=== PATIENT | female | born 1980 | race African-American/Black ===

== ENCOUNTER → 2017-03-25 | Emergency (ER) | payer OTHER ==
[~2017-03-25] VITALS: Ht 160 cm; Wt 77.1 kg
[~2017-03-25] MED LIST: ALEVE220 M2 PO; CIPRO500 MG PO; CYCLOBENZAPRINE10 MG ORAL; HYDROCODON-ACE1 EA15 ORAL; IBUPROFEN200 MG ORAL; IBUPROFEN400 M1 PO; IBUPROFEN600 MG ORAL; IBUPROFEN600 MG PO; IBUPROFEN800 MG PO; NKM; NORCO 5-325 TA1 EAC1 ORAL; NORCO 5-325 TA1 EACH ORAL; PHENAZOPYRIDIN200 MG PO; ROBAXIN-750750 MG PO; ROBAXIN500 MG PO; TRAMADOL HCL50 MG ORAL; VALIUM10 MG ORAL; VALIUM2 MG ORAL; VALIUM5 MG ORAL; VICODIN 5-5001 EACH PO
[2017-03-25 19:24] VITALS: BP 122/86
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
[2017-03-25 19:49] VITALS: BP 122/86
== END | disposition home or self-care (01) ==
LOC: EMR 19:49
DX: M54.5 Low back pain (principal); V43.62XA Car passenger injured in collision with other type car in traffic accident, initial encounter; Y92.414 Local residential or business street as the place of occurrence of the external cause
CPT/HCPCS: 99284

== ENCOUNTER 2018-01-05 19:08 | Emergency (ER) | payer MEDICAID, OTHER ==
[~2018-01-05] VITALS: Ht 160 cm; Wt 80.7 kg
[2018-01-05 19:31] VITALS: BP 113/74
[2018-01-05 19:56] LABS: APPEARANCE,URINE CLEAR; BILIRUBIN, URINE NEGATIVE (NEGATIVE); GLUCOSE, URINE (UA) NEGATIVE (NEGATIVE); KETONES,URINE NEGATIVE (NEGATIVE); LEUKOCYTE ESTERASE ,URINE 1+ (NEGATIVE); NITRITE,URINE NEGATIVE (NEGATIVE); PH,URINE 7 (4.5-8.0); PROTEIN,URINE NEGATIVE (NEGATIVE); UROBILINOGEN,URINE 1 MG/DL (0.0-1.0)
[2018-01-05 20:02] LABS: COLOR,URINE YELLOW
--- NOTE | 2018-01-05 20:04 | Emergency Room Report ---
History of Present Illness General Chief Complaint: Lower Back Pain or Injury Source: Patient Present Illness HPI 37-year-old female presents to the emergency department complaining of 7 out of 10 in severity intermittent low back muscular spasms 3 weeks. Patient also reports new onset of urinary frequency with urgency 3 days. Patient denies dysuria, hematuria, nausea, vomiting, fevers, chills. Denies abdominal pain or tenderness. She reports history of low back pain in the past that would happen every once in a while and sometimes with associated with sciatica symptoms. Patient states today her pain is primarily located across the low back and does not radiate down either of her legs. She denies trauma or fall or recent strenuous activities. She denies , recent spinal procedure or hx of cancer. Denies CP, Palpitations, LOC, AMS, dizziness, Changes in Vision, Sensation, paresthesias, or a sudden severe headache. Hx of kidney stones but states this does not feel like previous episodes. Allergies: Coded Allergies: LANOLIN (Verified Allergy, Intermediate, Hives, 10/26/12) Patient History Past Medical History: see triage record Past Surgical History: none Pertinent Family History: none Last Menstrual Period: 2 weeks ago Now: No Reviewed Nursing Documentation: PMH: Agreed; PSxH: Agreed Nursing Documentation-PMH Hx Hypertension: No - orthopedic surgery to left knee when 5yrs old Hx Pacemaker: No Hx Asthma: No Hx COPD: No Hx Diabetes: No Hx Cancer: No Hx Gastrointestinal Problems: No Hx Dialysis: No - Left Kidney Stone Removal Hx Neurological Problems: No Hx Cerebrovascular Accident: No Hx Seizures: No Review of Systems All Other Systems: negative except mentioned in HPI Physical Exam Vital Signs Date Time Temp Pulse Resp B/P (MAP) Pulse Ox O2 Delivery O2 Flow Rate FiO2 01/05/18 19:15 98.9 76 18 113/74 98 Room Air 99.0 Sp02 EP Interpretation: reviewed, normal General Appearance: no apparent distress, alert, GCS 15, non-toxic Head: normocephalic, atraumatic ENT: hearing grossly normal, normal voice Neck: full range of motion Respiratory: lungs clear, normal breath sounds, speaking full sentences Cardiovascular #1: regular rate, rhythm Gastrointestinal: normal bowel sounds, non tender, soft, non-distended, no guarding Rectal: deferred Genitourinary: normal inspection, no CVA tenderness Musculoskeletal: back normal, gait/station normal, normal range of motion, tender - TTP to the paraspinal muscles of the lumbar spine, no midline ttp, no obvious deformity. Neurologic: alert, oriented x3, responsive, motor strength/tone normal, sensory intact, speech normal, grossly normal Psychiatric: judgement/insight normal Skin: normal color, no rash, warm/dry, well hydrated Lymphatic: no adenopathy Medical Decision Making PA Attestation Dr. Dallas is my supervising Physician whom patient management has been discussed with. Diagnostic Impression: Primary Impression: Low back pain Qualified Codes: M54.5 - Low back pain Additional Impression: Spasm of back muscles ER Course 37-year-old female presents to the emergency department complaining of 7 out of 10 in severity intermittent low back muscular spasms 3 weeks. Patient also reports new onset of urinary frequency with urgency 3 days. Patient denies dysuria, hematuria, nausea, vomiting, fevers, chills. Denies abdominal pain or tenderness. She reports history of low back pain in the past that would happen every once in a while and sometimes with associated with sciatica symptoms. Patient states today her pain is primarily located across the low back and does not radiate down either of her legs. She denies trauma or fall or recent strenuous activities. She denies , recent spinal procedure or hx of cancer. Denies CP, Palpitations, LOC, AMS, dizziness, Changes in Vision, Sensation, paresthesias, or a sudden severe headache. Hx of kidney stones but states this does not feel like previous episodes. Ddx considered but are not limited to Fracture, dislocation, contusion, epidural abscess, Sprain/Strain/Spasm. pyelonephritis, UTI. Vital signs: are WNL, pt. is afebrile H&PE are most consistent with muscle spasm. ORDERS: -UA: unremarkable ED INTERVENTIONS: -Pt. declined medication here in ED/ Driving home DISCHARGE: At this time pt. is stable for d/c to home. Will provide printed patient care instructions, and any necessary prescriptions. Care plan and follow up instructions have been discussed with the patient prior to discharge. Labs Test 01/05/18 19:21 Urine Color Yellow Urine Appearance Clear Urine pH 7 (4.5-8.0) Urine Specific [place] 1.015 (1.005-1.035) Urine Protein Negative (NEGATIVE) Urine Glucose (UA) Negative (NEGATIVE) Urine Ketones Negative (NEGATIVE) Urine Occult Blood Negative (NEGATIVE) Urine Nitrite Negative (NEGATIVE) Urine Bilirubin Negative (NEGATIVE) Urine Urobilinogen 1 MG/DL (0.0-1.0) Urine Leukocyte Esterase 1+ (NEGATIVE) Urine RBC 0-2 /HPF (0 - 2) Urine WBC 0-2 /HPF (0 - 2) Urine Squamous Epithelial Cells Few /LPF (NONE/OCC) Urine Bacteria Few /HPF (NONE) Last Vital Signs Date Time Temp Pulse Resp B/P (MAP) Pulse Ox O2 Delivery O2 Flow Rate FiO2 01/05/18 19:31 99.0 18 113/74 98 Room Air 99.0 01/05/18 19:15 76 Disposition: HOME, SELF-CARE Condition: Stable Scripts Lidocaine (Lidoderm) 1 Each Adh..patch 1 PATCH TOPIC DAILY, #30 PATCH 0 Refills Patch(es) may remain in place for up to 12 hours in any 24-hour period. Prov: Carole Knapp P.A. 01/05/18 Methocarbamol* (ROBAXIN*) 500 Mg Tablet 1000 MG PO TID for 7 Days, #42 TAB 0 Refills Take 1 "Soma/carisoprodol" tonight at bedtime. Then start taking "Robaxin/methocarbamol" for maintenance starting tomorrow, do not take both medications at the same time. Prov: Carole Knapp P.A. 01/05/18 Carisoprodol* (SOMA*) 350 Mg Tablet 350 MG PO QHS, #1 TAB Take 1 "Soma/carisoprodol" tonight at bedtime. Then start taking "Robaxin/methocarbamol" for maintenance starting tomorrow, do not take both medications at the same time. Prov: Carole Knapp P.A. 01/05/18 Patient Instructions: Back Pain, Adult, Lumbosacral Strain Additional Instructions: Take 1 "Soma/carisoprodol" tonight at bedtime. Then start taking "Robaxin /methocarbamol" for maintenance starting tomorrow, do not take both medications at the same time. Follow up with a Primary Care Provider in 3-5 days, even if your symptoms have resolved. --Please review list of primary care clinics, if you do not already have a primary care provider Return sooner to ED if new symptoms occur, or current symptoms become worse. Do not drink alcohol, drive, or operate heavy machinery while taking Soma OR Robaxin as this may cause drowsiness. - Please note that this Emergency Department Report was dictated using [employer] of application development technology software, occasionally this can lead to erroneous entry secondary to interpretation by the dictation equipment. Carole Knapp January 05, 2018 20:04
[2018-01-05] MEDS ORDERED: LIDODERM700 M1 TOPIC (21:02)
[2018-01-05] MEDS ORDERED: SOMA350 MG PO (21:02)
[2018-01-05] MEDS ORDERED: ROBAXIN500 MG PO (21:02)
[2018-01-05 21:21] VITALS: BP 117/70
== END 2018-01-05 21:22 | disposition home or self-care (01) ==
LOC: EMR 21:02
DX: M54.5 Low back pain (principal); M62.830 Muscle spasm of back
CPT/HCPCS: 81003; 99284

== ENCOUNTER 2018-12-01 18:15 | Emergency (ER) | payer MEDICAID ==
[~2018-12-01] VITALS: Ht 157.5 cm; Wt 83.9 kg
[~2018-12-01 18:15] MED LIST changes: +LIDODERM700 M1 TOPIC; +SOMA350 MG PO
[2018-12-01] MEDS ORDERED: NKM (18:27)
[2018-12-01] MEDS ORDERED: IBUPROFEN600 MG ORAL (18:51)
[2018-12-01] MEDS ORDERED: ZYRTEC10 MG ORAL (18:51)
--- NOTE | 2018-12-01 18:53 | NUR ---
ED Nurse Note: Pt has been coughing and sneezing x 1 month. AOx4, VSS. Will cont to monitor.
[2018-12-01 18:55] VITALS: BP 109/75
[2018-12-01 19:00] VITALS: BP 109/75
--- NOTE | 2018-12-01 19:00 | NUR ---
ER DISCHARGE NOTE: Patient is cleared to be discharged per ERMD, pt is aox4, on room air, with stable vital signs. pt was given dc and prescription instructions, pt was able to verbalize understanding, pt id band removed. pt is able to ambulate with steady gait. pt took all belongings.
--- NOTE | 2018-12-01 19:04 | Emergency Room Report ---
History of Present Illness General Chief Complaint: Upper Respiratory Illness Source: Patient Present Illness HPI Patient presents with complaints of recent increased itching of her throat Some runny nose coughing and sneezing as well Denies any chest pain denies any shortness of breath denies any posterior neck pain Patient reports that she has decreased her smoking however still having some of these increased discomfort denies any recent travel There was a question regarding possible recent mold discovery where they live Patient also reports that she had a fall 2 weeks ago while skating with her daughter With pain to the left shoulder Denies any neuropathy denies any focal weakness Allergies: Coded Allergies: LANOLIN (Verified Allergy, Intermediate, Hives, 12/01/18) Patient History Past Medical History: see triage record Pertinent Family History: none Last Menstrual Period: 11/15/18 Now: No Reviewed Nursing Documentation: PMH: Agreed; PSxH: Agreed Nursing Documentation-PMH Past Medical History: No Stated History Hx Hypertension: No - orthopedic surgery to left knee when 5yrs old Hx Pacemaker: No Hx Asthma: No Hx COPD: No Hx Diabetes: No Hx Cancer: No Hx Gastrointestinal Problems: No Hx Dialysis: No - Left Kidney Stone Removal Hx Neurological Problems: No Hx Cerebrovascular Accident: No Hx Seizures: No Review of Systems All Other Systems: negative except mentioned in HPI Physical Exam Vital Signs Date Time Temp Pulse Resp B/P (MAP) Pulse Ox O2 Delivery O2 Flow Rate FiO2 12/01/18 18:24 98.4 88 16 116/79 97 Room Air Sp02 EP Interpretation: reviewed, normal General Appearance: well appearing, no apparent distress Head: normocephalic, atraumatic Eyes: bilateral eye PERRL, bilateral eye EOMI ENT: hearing grossly normal, normal pharynx, TMs + canals normal, uvula midline Neck: full range of motion, supple, no meningismus, no bony tend Respiratory: lungs clear, normal breath sounds, no rhonchi, no respiratory distress, no retraction, no accessory muscle use Cardiovascular #1: normal peripheral pulses, regular rate, rhythm, no edema, no gallop, no JVD, no murmur Gastrointestinal: normal bowel sounds, non tender, soft, no mass, no organomegaly, non-distended, no guarding, no hernia, no pulsatile mass, no rebound Genitourinary: no CVA tenderness Musculoskeletal: normal inspection - Subjective he points to the left upper shoulder anteriorly however range of motion intact, Neurologic: oriented x3, responsive, operations administrative assistant III-XII nml as tested, motor strength/ tone normal, sensory intact Psychiatric: mood/affect normal Skin: normal color, no rash, warm/dry, palpation normal Lymphatic: normal inspection, no adenopathy Medical Decision Making Diagnostic Impression: Primary Impression: allergy Additional Impression: shoulder contusion ER Course Given the patient's history and exam multiple differentials considered patient otherwise Hemodynamically stable has benign medical evaluation I did not feel further emergent imaging or workup was required And patient will have initial conservative outpatient trial Last Vital Signs Date Time Temp Pulse Resp B/P (MAP) Pulse Ox O2 Delivery O2 Flow Rate FiO2 12/01/18 18:55 98.4 84 20 109/75 97 Room Air Status: unchanged Disposition: HOME, SELF-CARE Condition: Stable Scripts Ibuprofen* (MOTRIN*) 600 Mg Tablet 600 MG ORAL Q8H PRN for For Pain, #20 TAB 0 Refills Prov: Abraham De León DO 12/01/18 Cetirizine Hcl* (ZYRTEC*) 10 Mg Tablet 10 MG ORAL DAILY, #12 TAB 0 Refills Prov: Abraham De León DO 12/01/18 Patient Instructions: Contusion, [id number], Allergic Rhinitis Additional Instructions: Patient is provided with the discharge instructions notified to follow up with primary doctor in the next 2-3 days otherwise return to the er with any worsening symptoms. Please note that this report is being documented using [employer] technology. This can lead to erroneous entry secondary to incorrect interpretation by the dictating instrument. Abraham De León DO Dec 01, 2018 19:04
== END 2018-12-01 19:00 | disposition home or self-care (01) ==
LOC: EMR 18:39
DX: T78.40XA Allergy, unspecified, initial encounter (principal); X58.XXXA Exposure to other specified factors, initial encounter; Z88.8 Allergy status to other drugs, medicaments and biological substances; F17.200 Nicotine dependence, unspecified, uncomplicated; S40.012A Contusion of left shoulder, initial encounter; W19.XXXA Unspecified fall, initial encounter; Y93.51 Activity, roller skating (inline) and skateboarding; Y92.9 Unspecified place or not applicable; Z87.442 Personal history of urinary calculi
CPT/HCPCS: 99281

== ENCOUNTER 2019-06-16 19:42 | Emergency (ER) | payer SELFPAY ==
[~2019-06-16] VITALS: Ht 160 cm; Wt 79.4 kg
[~2019-06-16 19:42] MED LIST changes: +ZYRTEC10 MG ORAL
--- NOTE | 2019-06-16 20:13 | NUR ---
ED Nurse Note: Pt walked into ER c/o of abdominal pain, N/V since Friday. A/Ox4; steady gait. IV established on LAC 22G. Blood and urine collected.
[2019-06-16] MEDS ORDERED: Metoclopramide 10mg/2ml Inj IVP ONE (20:15)
[2019-06-16] MEDS ORDERED: DiphenhydrAMINE 50mg/ml Inj IVP ONE (20:15)
[2019-06-16] MEDS ORDERED: Ketorolac 30mg Inj IV ONE (20:15)
--- NOTE | 2019-06-16 20:19 | Emergency Room Report ---
History of Present Illness General Chief Complaint: Headache Source: Patient Present Illness HPI Disclaimer: Please note that this report is being documented using [employer] technology. This can lead to erroneous entry secondary to incorrect interpretation by the dictating instrument. HPI: 38-year-old female with no reported medical history presenting for evaluation of abdominal pain, vomiting and headache. Symptoms began 3 days ago and have been steadily worsening. She states she has been unable to eat or drink anything due to severe upper abdominal pain, nausea and persistent vomiting. Unable to tolerate solids or liquids. Denies chest pain or shortness of breath but has reported a productive cough. Today she noted some blood-tinged sputum and came in for evaluation. Denies diarrhea. Reports some dysuria and hesitancy. Denies flank pain. She also reports a headache that starts from the upper shoulders and over the neck and then spreads over the back of the head that is worse while retching. Has been vomiting daily and feels weak and drained. Did not receive a flu shot this year. No known sick contacts. LMP 1 week ago. Denies vaginal bleeding or vaginal discharge PMH: Denies PSH: Denies Allergies: Denies Social Hx: Social alcohol use. Regular tobacco use. Denies drug use Allergies: Coded Allergies: LANOLIN (Verified Allergy, Intermediate, Hives, 12/01/18) Patient History Last Menstrual Period: 06/07/19 Now: No Nursing Documentation-PMH Past Medical History: No History, Except For Hx Hypertension: No - orthopedic surgery to left knee when 5yrs old Hx Pacemaker: No Hx Asthma: No Hx COPD: No Hx Diabetes: No Hx Cancer: No Hx Gastrointestinal Problems: No Hx Dialysis: No - Left Kidney Stone Removal Hx Neurological Problems: No Hx Cerebrovascular Accident: No Hx Seizures: No Review of Systems All Other Systems: negative except mentioned in HPI Physical Exam Vital Signs Date Time Temp Pulse Resp B/P (MAP) Pulse Ox O2 Delivery O2 Flow Rate FiO2 06/16/19 19:50 98.8 72 22 129/70 (89) 100 Room Air General: Awake and alert, no acute distress HEENT: NC/AT. EOMI. dry mucous membranes Cardiovascular: RRR. S1 and S2 normal. No murmur appreciated Resp: Mild tachypnea. Normal work of breathing. No cough, wheezing or crackles appreciated Abdomen: Abdomen is soft, nondistended. Tender in the epigastrium in the upper quadrants bilaterally. No significant tenderness in the lower quadrants. No rebound. No masses. Skin: Intact. No abrasions, laceration or rash over the exposed skin MSK: Normal tone and bulk. Moving all extremities. No obvious deformity. Neuro: Awake and alert. Mentating appropriately. Spine: Paraspinal tenderness over the cervical spine and over the trapezius. No midline pain in the cervical, thoracic or lumbosacral spine Medical Decision Making Diagnostic Impression: Primary Impression: Urinary tract infection Additional Impressions: Abdominal pain Vomiting ER Course 38-year-old female presents for evaluation of abdominal pain, vomiting and headache. Differential includes was not limited to gastritis, gastroenteritis, pneumonia, bronchitis, UTI, influenza, other viral syndrome, bowel obstruction, pancreatitis, cholecystitis, appendicitis. We will start broad metabolic and infectious work-up. Will give IV fluids, pain medication, nausea medication. Will reevaluate the patient after receiving medication however at this time do not believe she requires emergent imaging. Will reassess frequently. Laboratory Tests Test 06/16/19 20:25 06/16/19 20:38 White Blood Count 9.1 K/UL (4.8-10.8) Red Blood Count 5.20 M/UL (4.20-5.40) Hemoglobin 16.1 G/DL (12.0-16.0) H Hematocrit 45.7 % (37.0-47.0) Mean Corpuscular Volume 88 FL (80-99) Mean Corpuscular Hemoglobin 31.0 PG (27.0-31.0) Mean Corpuscular Hemoglobin Concent 35.4 G/DL (32.0-36.0) Red Cell Distribution Width 10.0 % (11.6-14.8) L Platelet Count 255 K/UL (150-450) Mean Platelet Volume 6.1 FL (6.5-10.1) L Neutrophils (%) (Auto) 83.4 % (45.0-75.0) H Lymphocytes (%) (Auto) 11.8 % (20.0-45.0) L Monocytes (%) (Auto) 4.2 % (1.0-10.0) Eosinophils (%) (Auto) 0.0 % (0.0-3.0) Basophils (%) (Auto) 0.7 % (0.0-2.0) Sodium Level 136 MMOL/L (136-145) Potassium Level 3.3 MMOL/L (3.5-5.1) L Chloride Level 98 MMOL/L (98-107) Carbon Dioxide Level 26 MMOL/L (21-32) Anion Gap 12 mmol/L (5-15) Blood Urea Nitrogen 7 mg/dL (7-18) Creatinine 1.0 MG/DL (0.55-1.30) Estimate Glomerular Filtration Rate > 60 mL/min (>60) Glucose Level 135 MG/DL (74-106) H Calcium Level 9.0 MG/DL (8.5-10.1) Total Bilirubin 0.5 MG/DL (0.2-1.0) Aspartate Amino Transferase (AST) 17 U/L (15-37) Alanine Aminotransferase (ALT) 20 U/L (12-78) Alkaline Phosphatase 79 U/L (46-116) Total Protein 8.7 G/DL (6.4-8.2) H Albumin 3.2 G/DL (3.4-5.0) L Globulin 5.5 g/dL Albumin/Globulin Ratio 0.6 (1.0-2.7) L Lipase 77 U/L (73-393) Urine Color Yellow Urine Appearance Cloudy Urine pH 9 (4.5-8.0) Urine Specific [place] 1.015 (1.005-1.035) Urine Protein 3+ (NEGATIVE) H Urine Glucose (UA) Negative (NEGATIVE) Urine Ketones 1+ (NEGATIVE) H Urine Blood 2+ (NEGATIVE) H Urine Nitrite Negative (NEGATIVE) Urine Bilirubin Negative (NEGATIVE) Urine Urobilinogen 4 MG/DL (0.0-1.0) H Urine Leukocyte Esterase 2+ (NEGATIVE) H Urine RBC 5-10 /HPF (0 - 2) H Urine WBC 15-20 /HPF (0 - 2) H Urine Squamous Epithelial Cells Many /LPF (NONE/OCC) H Urine Amorphous Sediment Moderate /LPF (NONE) H Urine Bacteria Moderate /HPF (NONE) H Urine HCG, Qualitative Negative (NEGATIVE) Chest X-Ray Diagnostic Results Chest X-Ray Diagnostic Results : Chest X-Ray Ordered: Yes # of Views/Limited/Complete: 1 View Indication: Shortness of Breath EP Interpretation: Yes Interpretation: no consolidation, no effusion, no pneumothorax, no acute cardiopulmonary disease Impression: No acute disease Electronically Signed by: Electronically signed by Dr. Jose R Solares Reevaluation Time: 22:04 Last Vital Signs Date Time Temp Pulse Resp B/P (MAP) Pulse Ox O2 Delivery O2 Flow Rate FiO2 06/16/19 19:50 98.8 72 22 129/70 (89) 100 Room Air Reevaluation Impression Labs have returned largely within normal limits aside from evidence of a urinary tract infection for which the patient will be treated with antibiotics. No further episodes of emesis in the emergency department. She did become febrile and was ordered a gram of Tylenol. Chest x-ray is unremarkable without evidence of pneumonia. Likely, this is a viral illness which should resolve the next few days. Patient will treated symptomatically with Zofran and started on Keflex for treatment of her urinary tract infection. She can follow- up with her FISHERIES DIRECTOR or PMD within the next week for reevaluation. We discussed reasons to return to the emergency department. She understands and agrees with the treatment plan was discharged home. Disposition: HOME, SELF-CARE Condition: Stable Scripts Ondansetron Odt* (ZOFRAN ODT*) 4 Mg Tab.rapdis 4 MG BC EVERY 6 HOURS PRN for Nausea & Vomiting, #20 TAB 0 Refills Prov: Jose R Solares MD 06/16/19 Cephalexin* (KEFLEX*) 500 Mg Capsule 500 MG ORAL EVERY 12 HOURS, #14 CAP 0 Refills Prov: Jose R Solares MD 06/16/19 Jose R Solares MD Jun 16, 2019 20:19
[2019-06-16 20:38] LABS: BASOPHILS % (AUTO) 0.7 % (0.0-2.0); HEMATOCRIT 45.7 % (37.0-47.0); HEMOGLOBIN 16.1 G/DL (12.0-16.0); LYMPHOCYTES % (AUTO) 11.8 % (20.0-45.0); MEAN CORPUSCULAR VOLUME 88 FL (80-99); MONOCYTES % (AUTO) 4.2 % (1.0-10.0); NEUTROPHILS % (AUTO) 83.4 % (45.0-75.0); PLATELET COUNT 255 K/UL (150-450); WHITE BLOOD COUNT 9.1 K/UL (4.8-10.8)
[2019-06-16 20:50] LABS: ANION GAP 12 mmol/L (5-15); BLOOD UREA NITROGEN 7 mg/dL (7-18); CARBON DIOXIDE 26 MMOL/L (21-32); CHLORIDE 98 MMOL/L (98-107); POTASSIUM 3.3 MMOL/L (3.5-5.1); SODIUM 136 MMOL/L (136-145)
[2019-06-16 20:51] LABS: APPEARANCE,URINE CLOUDY; BILIRUBIN, URINE NEGATIVE (NEGATIVE); GLUCOSE, URINE (UA) NEGATIVE (NEGATIVE); KETONES,URINE 1+ (NEGATIVE); LEUKOCYTE ESTERASE ,URINE 2+ (NEGATIVE); NITRITE,URINE NEGATIVE (NEGATIVE); PH,URINE 9 (4.5-8.0); PROTEIN,URINE 3+ (NEGATIVE); UROBILINOGEN,URINE 4 MG/DL (0.0-1.0)
[2019-06-16 20:53] LABS: COLOR,URINE YELLOW
[2019-06-16 20:56] LABS: ALANINE AMINOTRANSFERASE 20 U/L (12-78); ALBUMIN 3.2 G/DL (3.4-5.0); ALBUMIN/GLOBULIN RATIO 0.6 (1.0-2.7); ALKALINE PHOSPHATASE 79 U/L (46-116); ASPARTATE AMINO TRANSFERASE 17 U/L (15-37); BILIRUBIN,TOTAL 0.5 MG/DL (0.2-1.0)
[2019-06-16] MEDS ORDERED: Acetaminophen 500mg (ES) tab ORAL ONE (21:30)
--- NOTE | 2019-06-16 21:42 | NUR ---
ED Nurse Note: Oral temp 101.0, notified Tylenol ordered and given.
[2019-06-16] MEDS ORDERED: CEPHALEXIN500 MG ORAL ×2 (21:56→22:06)
[2019-06-16] MEDS ORDERED: ONDANSETRON ODT4 MG BC (22:07)
--- NOTE | 2019-06-16 22:07 | NUR ---
ELOPEMENT: Patient not found in her room. All belongings are missing. All areas checked in ER. ERMD notified.
--- NOTE | 2019-06-16 22:22 | NUR ---
ED Nurse Note: Patient was found in ER waiting room. Reports, "I can't stand the noise here." MD notified and discharged to home. IV removed and patient took all belongings. A/ox4; steady gait. Reports feeling better. 3/10 on pain scale.
[2019-06-16 22:28] VITALS: BP 134/78
--- NOTE | 2019-06-17 11:22 | Diagnostic Imaging Report ---
Indication: Cough Comparison: None A single view chest radiograph was obtained. Findings: Cardiomediastinal appearance is within normal limits for age. The lungs are clear. Pulmonary vascularity is appropriate. The diaphragmatic contour is smooth and costophrenic angles are sharp. No pleural effusions are identified. The bones are unremarkable. Impression: No acute findings
== END 2019-06-16 22:29 | disposition home or self-care (01) ==
LOC: EMR 20:30
DX: N39.0 Urinary tract infection, site not specified (principal); R10.9 Unspecified abdominal pain; R11.10 Vomiting, unspecified; Z88.8 Allergy status to other drugs, medicaments and biological substances
CPT/HCPCS: 36415; 71045; 80053; 81003; 81025; 83690; 85025; 86710; 87086; 96361; 96374; 96375; 99284; J1200; J1885; J2765; J7030